=== PATIENT | male | born 1960 | race Caucasian/White ===

== ENCOUNTER 2018-09-17 05:48 | Inpatient (IN) ==
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
[2018-09-17 06:10] LABS: Basophils # (auto) 0.03 K/uL (0-0.2); Basophils % (auto) 0.3 %; Eosinophils # (auto) 0.13 K/uL (0-0.5); Eosinophils % (auto) 1.2 %; Hematocrit (blood only) 42.9 % (42-52); Hemoglobin 15.8 g/dL (14.0-18.0); Immature Granulocytes # (auto) 0.07 K/uL (0.00-0.02); Immature Granulocytes % (auto) 0.6 %; Lymphocytes # (auto) 2.83 K/uL (1.2-3.4); Lymphocytes % (auto) 25.1 %; Mean Corpuscular Hgb Conc 36.8 g/dL (32-36); Mean Corpuscular Volume 89.4 fL (80-100); Mean Platelet Volume 9.6 fL (7.4-10.4); Monocytes # (auto) 1.11 K/uL (0.11-0.59); Monocytes % (auto) 9.8 %; Neutrophils # (auto) 7.11 K/uL (1.4-6.5); Platelet Count 242 K/uL (130-400); RDW Coefficient of Variation 13.5 % (11.5-14.5); RDW Standard Deviation 44.7 fL (36.4-46.3); White Blood Count 11.28 K/uL (4.8-10.8)
--- NOTE | 2018-09-17 06:13 | XRay Report ---
XR chest 1V portable CLINICAL HISTORY: weakness COMPARISON STUDY: No previous studies for comparison. FINDINGS: The heart is enlarged. There is moderate elevation left hemidiaphragm. There is interstitia l prominence without evidence of overt failure. There is no lobar consolidation. There are no pleural effusions.[ IMPRESSION: 1. Cardiomegaly 2. Elevation left hemidiaphragm 3. Interstitial prominence without evidence of overt failure Electronically signed by: Meir Ackerman M.D. 09/17/2018 6:12 AM
[2018-09-17 06:28] LABS: Alanine Aminotransferase 22 U/L (12-78); Albumin Level 3.5 gm/dl (3.4-5.0); Aspartate Aminotransferase 21 U/L (15-37); BUN Creatinine Ratio 16.6 (10-20); Blood Urea Nitrogen 18 mg/dl (7-18); Calcium 9.4 mg/dl (8.5-10.1); Carbon Dioxide 27 mmol/L (21-32); Chloride 106 mmol/L (98-107); Creatinine Clr Calc Pharmacy 98.2 ml/min; Est GFR (African American) 87.6; Est GFR (Non-African American) 75.6; Glucose 119 mg/dl (70-99); Potassium 3.5 mmol/L (3.5-5.1); Sodium 139 mmol/L (136-145)
[2018-09-17 06:38] LABS: Albumin Globulin Ratio 0.9 (0.9-2); Alkaline Phosphatase 113 U/L (45-117); Bilirubin,Total 0.6 mg/dl (0.2-1); Globulin 3.8 gm/dl (2.5-4.0); Total Protein 7.3 gm/dl (6.4-8.2); Troponin I < 0.015 ng/ml (0-0.045)
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
[2018-09-17] MEDS ORDERED: GADOBUTROL 65ML VIAL IV PRN (08:41)
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
[2018-09-17] MEDS ORDERED: PHARMACIST DISCHARGE MED REC CONSULT PRN (11:17)
[2018-09-17] MEDS ORDERED: DOCUSATE SODIUM 100 MG CAP PO PRN (11:17)
[2018-09-17] MEDS ORDERED: CALCIUM CARBONATE 500 MG CHEWABLE TAB PO PRN (11:17)
[2018-09-17] MEDS ORDERED: POLYETHYLENE (MIRALAX) 17 GM PACK PO PRN (11:17)
[2018-09-17] MEDS ORDERED: OPTIRAY 320 125ml IV PRN (12:03)
[2018-09-17 12:05] LABS: INR 1.1 (0.9-1.1)
[2018-09-17 12:22] LABS: Chol HDL Ratio 5; Cholesterol 220 mg/dl (0-200); HDL Cholesterol 45 mg/dl; LDL Cholesterol Calculated 163 mg/dl; Triglycerides 59 mg/dl (0-150); VLDL Cholesterol 12 mg/dl
[2018-09-17] MEDS: ENOXAPARIN INJ 40 MG/0.4 ML SYR SQ SCH (13:02)
--- NOTE | 2018-09-17 13:34 | CT Scan Report ---
CT angio head w con CLINICAL HISTORY: Subacute right hemispheric infarcts TECHNIQUE: CT angiography of the head was performed in a dynamic helical fashion during intravenous a dministration of 118 cc of Optiray 320. MIP imaging was performed. A dose lowering technique was util ized adhering to the principles of ALARA. CT DOSE: 738.79 mGy.cm COMPARISON STUDY: No previous studies for comparison. FINDINGS: There are no lesion suspicious for aneurysm. There is a right MCA bifurcation branch occlus ion. In addition there is subtle diminished attenuation of the flow throughout the right hemisphere, likely secondary to the patient's known multifocal infarcts. IMPRESSION: 1. No evidence of aneurysm 2. Right middle cerebral artery bifurcation branch occlusion 3. Subtle diffuse attenuation of the flow throughout the right hemisphere, likely secondary to the pa tient's known multifocal infarcts Electronically signed by: Meir Ackerman M.D. 09/17/2018 1:33 PM
--- NOTE | 2018-09-17 13:36 | CT Scan Report ---
CT angio neck with con CLINICAL HISTORY: Right subacute CVA COMPARISON STUDY: No previous studies for comparison. TECHNIQUE: CT angiography was performed from the aortic arch to the skull base. MIP imaging was perfo rmed. The patient was scanned in a dynamic helical fashion during intravenous administration of 118 c c of Optiray 320. A dose lowering technique was utilized adhering to the principles of ALARA. CT DOSE: Technique: CT angiogram of the carotid and vertebral arteries was obtained using intravenous contrast and 3-D reconstruction. NASCET criteria was utilized. Findings: The right carotid revealed no evidence of aneurysm and no evidence of dissection. There is no evidenc e of hemodynamic significant stenosis. The left carotid revealed no evidence of hemodynamic significant stenosis. There is no evidence of an eurysm. There is no evidence of dissection. There is no evidence of hemodynamically significant vertebral stenosis. There is no evidence of verte bral dissection. IMPRESSION: No evidence of hemodynamically significant carotid or vertebral artery stenosis. No evidence of disse ction. Electronically signed by: Meir Ackerman M.D. 09/17/2018 1:35 PM
[2018-09-17] MEDS: CLOPIDOGREL BISULFATE 75 MG TAB PO SCH (14:18)
[2018-09-17] MEDS: ASPIRIN 81 MG ECTAB PO SCH (14:18)
[2018-09-17 18:00] LABS: Appearance Urine Clear (Clear); Bilirubin Urine Negative (Negative); Blood Urine Negative (Negative); Color Urine Yellow; Glucose Urine UA Negative (Negative); Ketones Urine Negative (Negative); Leukocyte Esterase Urine Negative (Negative); Nitrite Urine Negative (Negative); Protein Urine Negative (Negative); Specific Gravity Urine > 1.045 (1.000-1.030); Urobilinogen Urine Negative (Negative); pH Urine 7.5 (4.5-7.5)
[2018-09-17] MEDS: GABAPENTIN 100 MG CAP PO SCH (20:33)
[2018-09-17] MEDS ORDERED: SIMVASTATIN 20 MG TAB PO SCH (21:00)
[2018-09-18 06:08] LABS: Estimated Average Glucose 120 mg/dl; Hemoglobin A1C 5.8 % (4.5-5.6)
[2018-09-18 06:57] LABS: Basophils # (auto) 0.02 K/uL (0-0.2); Basophils % (auto) 0.2 %; Eosinophils # (auto) 0.12 K/uL (0-0.5); Eosinophils % (auto) 1.3 %; Hematocrit (blood only) 43.5 % (42-52); Hemoglobin 15.6 g/dL (14.0-18.0); Immature Granulocytes # (auto) 0.02 K/uL (0.00-0.02); Immature Granulocytes % (auto) 0.2 %; Lymphocytes # (auto) 2.07 K/uL (1.2-3.4); Lymphocytes % (auto) 21.9 %; Mean Corpuscular Hgb Conc 35.9 g/dL (32-36); Mean Corpuscular Volume 90.1 fL (80-100); Mean Platelet Volume 9.7 fL (7.4-10.4); Monocytes # (auto) 0.74 K/uL (0.11-0.59); Monocytes % (auto) 7.8 %; Neutrophils # (auto) 6.47 K/uL (1.4-6.5); Neutrophils % (auto) 68.6 %; Platelet Count 230 K/uL (130-400); RDW Coefficient of Variation 13.5 % (11.5-14.5); RDW Standard Deviation 44.7 fL (36.4-46.3); Red Blood Count 4.83 M/uL (4.7-6.1); White Blood Count 9.44 K/uL (4.8-10.8)
[2018-09-18 07:36] LABS: BUN Creatinine Ratio 12.8 (10-20); Calcium 9.4 mg/dl (8.5-10.1); Est GFR (African American) 112.2; Est GFR (Non-African American) 96.8
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
[2018-09-18] MEDS: CITALOPRAM 20 MG TAB PO SCH (08:49)
[2018-09-18] MEDS: PANTOprazole 40 MG TAB PO SCH (08:49)
[2018-09-18] MEDS: ALLOPURINOL 100 MG TAB PO SCH (08:49)
[2018-09-18] MEDS: CLOPIDOGREL BISULFATE 75 MG TAB PO SCH (08:49)
[2018-09-18] MEDS: ASPIRIN 81 MG ECTAB PO SCH (08:50)
[2018-09-18] MEDS: ENOXAPARIN INJ 40 MG/0.4 ML SYR SQ SCH (08:50)
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
[2018-09-18] MEDS: RIVAROXABAN 2.5 MG TAB PO SCH ×2 (13:14→20:51)
[2018-09-18] MEDS ORDERED: OPTIRAY 320 125ml IV PRN (14:47)
--- NOTE | 2018-09-18 14:50 | CT Scan Report ---
Study: CT angiography of the chest HISTORY: Pain. Mental status change. FINDINGS: Minimal atherosclerotic change thoracic aorta. No evidence for aneurysm or dissection. Origin of the great vessels is unremarkable. Pulmonary vasculature enhances uniformly. No significant filling defects. Lungs are clear. IMPRESSION: 1. No acute process of the aortic arch. 2. Minimal scattered plaque formation 3. No evidence for pulmonary embolus. 4. The lungs are clear. Electronically signed by: Dash Lopez M.D. 09/18/2018 2:49 PM
--- NOTE | 2018-09-18 15:00 | CT Scan Report ---
ABDOMEN AND PELVIS CT WITH IV AND ORAL CONTRAST CT DOSE: HISTORY: Rule out malignancy TECHNIQUE: Multiaxial CT images of the abdomen and pelvis were performed following the use of intrave nous and oral contrast. A dose lowering technique was utilized adhering to the principles of ALARA. COMPARISON STUDY: Abdomen and pelvis CT 11/29/2013. FINDINGS: Chronic elevation of the left hemidiaphragm, unchanged. The lung bases are clear. No pneumo peritoneum. No pneumatosis. No fractures within the visualized osseous structures. Cholelithiasis. Th e liver, spleen, and pancreas are unremarkable. There is a 7 mm hypodense lesion within the upper rachel e the left kidney. This is technically too small to characterize but favors a cyst. Lobular area with in the anteromedial aspect of the right mid kidney on image 198 is also stable. This may represent sc arring. No pneumatosis. Hypodense bilateral adrenal gland nodules have slightly increased in size but favor benign adenomas. The largest on the right measures 2 cm. No retroperitoneal lymphadenopathy. N ormal caliber abdominal aorta. No pelvic lymphadenopathy. The bladder is unremarkable. No bowel wall thickening or obstruction. Normal appendix. Normal bladder. IMPRESSION: 1. Chronic elevation of the left hemidiaphragm. 2. Bilateral hypodense adrenal gland nodules. These favor benign adenomas. 3. Cholelithiasis. 4. No masses or lymphadenopathy within the abdomen or pelvis. Electronically signed by: Kingsley Payton M.D. 09/18/2018 2:59 PM
[2018-09-18] MEDS ORDERED: ACETAMINOPHEN 325 MG TAB PO PRN (16:06)
[2018-09-18] MEDS: GABAPENTIN 100 MG CAP PO SCH (20:50)
[2018-09-19 07:25] LABS: Basophils # (auto) 0.02 K/uL (0-0.2); Basophils % (auto) 0.2 %; Eosinophils % (auto) 1.2 %; Hematocrit (blood only) 45.7 % (42-52); Hemoglobin 15.9 g/dL (14.0-18.0); Immature Granulocytes # (auto) 0.01 K/uL (0.00-0.02); Immature Granulocytes % (auto) 0.1 %; Lymphocytes # (auto) 1.72 K/uL (1.2-3.4); Lymphocytes % (auto) 21.3 %; Mean Corpuscular Hgb Conc 34.8 g/dL (32-36); Mean Corpuscular Volume 90.3 fL (80-100); Mean Platelet Volume 9.7 fL (7.4-10.4); Monocytes # (auto) 0.79 K/uL (0.11-0.59); Monocytes % (auto) 9.8 %; Neutrophils # (auto) 5.42 K/uL (1.4-6.5); Neutrophils % (auto) 67.4 %; Platelet Count 238 K/uL (130-400); RDW Coefficient of Variation 13.3 % (11.5-14.5); RDW Standard Deviation 43.9 fL (36.4-46.3); Red Blood Count 5.06 M/uL (4.7-6.1); White Blood Count 8.06 K/uL (4.8-10.8)
[2018-09-19] MEDS: RIVAROXABAN 2.5 MG TAB PO SCH (07:33)
[2018-09-19] MEDS: CITALOPRAM 20 MG TAB PO SCH (07:33)
[2018-09-19] MEDS: ASPIRIN 81 MG ECTAB PO SCH (07:33)
[2018-09-19] MEDS: PANTOprazole 40 MG TAB PO SCH (07:33)
[2018-09-19] MEDS: ALLOPURINOL 100 MG TAB PO SCH (07:34)
[2018-09-19 07:57] LABS: BUN Creatinine Ratio 11.6 (10-20); Calcium 9.2 mg/dl (8.5-10.1); Creatinine Clr Calc Pharmacy 114.9 ml/min; Est GFR (Non-African American) 93.2; Potassium 4.1 mmol/L (3.5-5.1)
[2018-09-19] MEDS ORDERED: ATORVASTATIN 40 MG TAB PO SCH (09:00)
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
[2018-09-19] MEDS ORDERED: STROKE PATIENT DISCHARGE PRN (14:28)
--- NOTE | 2018-09-19 15:33 | Pharmacy Report ---
Pharmacist Stroke Counseling - Date of Service September 19, 2018 - Scope: Pharmacy has been consulted to provide medication discharge counseling for this patient admitted with ischemic stroke as per the Pharmacist Discharge Counseling for Stroke Patients Protocol. - Medications on Discharge: Home Medications Medication Instructions Recorded Confirmed allopurinol 100 mg PO DAILY 05/14/18 09/17/18 omeprazole 40 mg PO DAILY 05/14/18 09/17/18 citalopram 0 mg PO DAILY 09/17/18 09/17/18 gabapentin 100 mg PO HS 09/17/18 09/17/18 ketorolac 10 mg PO DAILY PRN 09/17/18 09/17/18 meloxicam 15 mg PO DAILY 09/17/18 09/17/18 tramadol 50 mg PO Q6H PRN 09/17/18 09/17/18 New Rx's Medication Instructions Recorded aspirin [Ecotrin Low Strength] 81 mg PO QAM 30 Days #30 tab 09/19/18 atorvastatin 40 mg PO QAM 30 Days #30 tab 09/19/18 rivaroxaban [Xarelto] 20 mg PO DAILY 30 Days #30 tab 09/19/18 - Action: The above medications, specifically ones for stroke treatment/prophylaxis, have been reviewed in detail with the patient prior to discharge. This includes indication, common adverse reactions, drug interactions, and medication administration. - Outcome: The patient demonstrated understanding of the medications. Please note, they are aware that the pharmacist will call them within 72 hours post-discharge to confirm that the appropriate medications are being taken and answer any further medication related questions the patient might have at that time. Contact information Individual to be contacted: Marbin (patient) Phone number: Best time to call: anytime Additional comments: - Discussed 3 new medications (aspirin, rivaroxaban, and atorvastatin). Used the "medications to prevent stroke" handout as a guide. Patient also acknowledged understanding that his simvastatin is to be discontinued - Patient noted he had been on warfarin for a DVT in the past. - I gave him a free 30 day co-pay card for rivaroxaban. I encouraged him to ask the outpatient pharmacist what his co-pay for rivaroxaban will be *without* this card to assess what the financial obligation will be in the future, to help determine if a different anticoagulant may be a better option for him ongoing. Patient believed the co-pay would be $8 which would be manageable for him. Thank you for allowing pharmacy to be involved in the care of this patient. Please call [phone] with any additional questions
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
[2018-09-20] MEDS ORDERED: RIVAROXABAN 20 MG TAB PO SCH (16:30)
--- NOTE | 2018-09-22 15:00 | Pharmacy Report ---
Pharmacist Post D/C Phone Note - Phone Note: Date of phone call: September 22, 2018. Individual with whom pharmacist spoke to: MARQUES ROWLAND The following questions were reviewed during the phone call with responses listed below each: Can you tell me the medications that you are currently taking as well as when and how you take each medication? -See Table Below When have you missed any doses of your medications? - He has not What side effects are you having from your medications, specifically, the new medications you were started on? - Says everything was good. Thinks his arm felt funny from how he slept on it. What questions do you have about your medications? - Didn't have any questions. Just wants to clarify with his doctor what he should stop taking What problems are you having obtaining your medications? - Said his copay for the Xarelto was more than $8 but it wouldnt be a problem When is your next appointment with your primary care doctor? - September [address] Gill Additional comments: - Patient said his heart monitor came in the mail today and he was going to start wearing it tonight. As per the Pharmacist Discharge Counseling for Stroke Patients Protocol, this phone call has been completed within 72 hours of discharge. Thank you for allowing us to be involved in the care of this patient. - Home Medications: Home Medications Medication Instructions Recorded Confirmed allopurinol 100 mg PO DAILY 05/14/18 09/17/18 omeprazole 40 mg PO DAILY 05/14/18 09/17/18 citalopram 20 mg PO DAILY 09/17/18 09/17/18 gabapentin 100 mg PO HS 09/17/18 09/17/18 ketorolac 10 mg PO DAILY PRN 09/17/18 09/17/18 meloxicam 15 mg PO DAILY 09/17/18 09/17/18 tramadol 50 mg PO Q6H PRN 09/17/18 09/17/18 varicella-zoster glycop E vaccine 0.5 ml IM .INJECT 0.5 ML Once A 09/20/18 09/20/18 (vial 2 of 2) 50 mcg IM suspension #0.5 ea New Rx's Medication Instructions Recorded aspirin [Ecotrin Low Strength] 81 mg PO QAM 30 Days #30 tab 09/19/18 atorvastatin 40 mg PO QAM 30 Days #30 tab 09/19/18 rivaroxaban [Xarelto] 20 mg PO DAILY 30 Days #30 tab 09/19/18
== END 2018-09-19 14:38 | disposition home or self-care (01) | DRG 66 ==
LOC: ED 05:48 → 2S 05:48 → SUATTDRO 13:06